=== PATIENT | female | born 1940 | race Caucasian/White ===

== ENCOUNTER 2017-06-05 08:15 | Day surgery (SDC) | payer OTHER ==
[~2017-06-05 08:15] MED LIST: ASA81 MG; GLIPIZIDE ER10 MG; HUMULIN N100 UNIT/2; LOSARTAN POTASS50 MG
[2017-06-05] MEDS ORDERED: TYLENOL-CODEINE1 TA1 PO (11:01)
[2017-06-05] MEDS ORDERED: LEVAQUIN500 MG PO (11:02)
== END 2017-06-05 12:45 | disposition home or self-care (01) ==
LOC: CIR.AMB 08:15
DX: N39.41 Urge incontinence (principal)
CPT/HCPCS: 64581; C1778

== ENCOUNTER 2017-06-12 07:58 | Day surgery (SDC) | payer OTHER ==
[~2017-06-12 07:58] MED LIST changes: +LEVAQUIN500 MG PO; +TYLENOL-CODEINE1 TA1 PO
== END 2017-06-12 17:15 | disposition home or self-care (01) ==
LOC: CIR.AMB 07:58
DX: N32.81 Overactive bladder (principal)
CPT/HCPCS: 64590; C1767